=== PATIENT | female | born 2000 | race Caucasian/White ===

== ENCOUNTER 2021-06-14 12:32 | Emergency (ER) | payer BC, OTHER ==
[~2021-06-14] VITALS: Ht 160 cm; Wt 67.7 kg
[2021-06-14 13:17] VITALS: BP 127/77
--- NOTE | 2021-06-14 13:21 | NUR ---
PT TO WAIT IN LOBBY
--- NOTE | 2021-06-14 14:28 | NUR ---
Pt brought back from radiology via w/c.
[2021-06-14] MEDS ORDERED: LIDO1ADH47 TP (15:35)
[2021-06-14] MEDS ORDERED: NAPR-54 PO (15:35)
[2021-06-14] MEDS ORDERED: METH-1681 PO (15:35)
--- NOTE | 2021-06-14 15:41 | NUR ---
PT SEEN AND D/C BY MISSY FLORENCE, NO NURSING INTERVENTIONS PROVIDED
--- NOTE | 2021-06-14 15:42 | NUR ---
Patient discharged with v/s stable. Written and verbal after care instructions ABOUT CERVICAL STRAIN AND SPRAIN REHAB AND MUSCLE STRAIN given and explained. Patient alert, oriented and verbalized understanding of instructions. Ambulatory with steady gait. All questions addressed prior to discharge. ID band removed. Patient advised to follow up with PMD. Rx of LIDOCAINE, ROBAXIN AND NAPROXEN given. Patient educated on indication of medication including possible reaction and side effects. Opportunity to ask questions provided and answered.
[2021-06-14 15:45] VITALS: BP 134/90
== END 2021-06-14 15:42 | disposition home or self-care (01) ==
LOC: MED 12:32
DX: S13.4XXA Sprain of ligaments of cervical spine, initial encounter (principal); M54.6 Pain in thoracic spine; Z79.899 Other long term (current) drug therapy; Z79.1 Long term (current) use of non-steroidal anti-inflammatories (NSAID); V89.2XXA Person injured in unspecified motor-vehicle accident, traffic, initial encounter; Y93.89 Activity, other specified; Y92.410 Unspecified street and highway as the place of occurrence of the external cause; Y99.8 Other external cause status
CPT/HCPCS: 72050; 72072; 99284